=== PATIENT | male | born 1995 | race Caucasian/White ===

== ENCOUNTER 2017-07-29 02:19 | Emergency (ER) | payer OTHER ==
[~2017-07-29] VITALS: Ht 172.7 cm; Wt 82.3 kg
[2017-07-29 02:24] VITALS: Ht 172.7 cm; Wt 82.3 kg
[2017-07-29 02:34] VITALS: O2SAT 96
[2017-07-29 03:15] LABS: BUN/CREATININE RATIO 11.6 (10-20); CALCIUM 8.6 mg/dl (8.5-10.1); POTASSIUM 3.2 mmol/L (3.5-5.1)
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
[2017-07-29 07:49] VITALS: BP 125/75; PULSE 80; O2SAT 99
== END 2017-07-29 07:57 | disposition home or self-care (01) ==
LOC: C.EDA 02:21
DX: F10.920 Alcohol use, unspecified with intoxication, uncomplicated (principal); E87.6 Hypokalemia; Y90.8 Blood alcohol level of 240 mg/100 ml or more